=== PATIENT | female | born 1980 | race Caucasian/White ===

== ENCOUNTER 2022-06-10 18:28 | Emergency (ER) | payer BC, OTHER ==
[~2022-06-10] VITALS: Ht 167.6 cm; Wt 118.2 kg
[2022-06-10 18:36] VITALS: TEMP 98.8
[2022-06-10] MEDS ORDERED: TOPROL XL 50MG50 MG PO (18:57)
[2022-06-10] MEDS ORDERED: SINGULAIR 110 MG/TAB PO (18:58)
[2022-06-10] MEDS ORDERED: NORVASC 10MG10 MG PO ×2 (18:58→18:59)
[2022-06-10] MEDS ORDERED: BENTYL 10MG10 MG/CAP PO (18:59)
[2022-06-10 19:27] VITALS: BP 141/99; PULSE 91
[2022-06-16] MEDS ORDERED: PREDNISONE20 MG PO (20:53)
== END 2022-06-10 19:35 | disposition home or self-care (01) ==
LOC: COL.ER 18:28
DX: L50.0 Allergic urticaria (principal)
CPT/HCPCS: J1200; J2930; J7030

== ENCOUNTER 2022-06-24 18:36 | Emergency (ER) | payer BC, OTHER ==
[~2022-06-24] VITALS: Ht 167.6 cm; Wt 118.2 kg
[~2022-06-24 18:36] MED LIST: BENTYL 10MG10 MG/CAP PO; NORVASC 10MG10 MG PO; PREDNISONE20 MG PO; SINGULAIR 110 MG/TAB PO; TOPROL XL 50MG50 MG PO
[2022-06-24 18:39] VITALS: TEMP 98.1
[2022-06-24 19:50] VITALS: BP 142/62; PULSE 79
== END 2022-06-24 19:56 | disposition home or self-care (01) ==
LOC: COL.ER 18:36
DX: T78.40XA Allergy, unspecified, initial encounter (principal); Z87.891 Personal history of nicotine dependence
CPT/HCPCS: J2930; J7030